=== PATIENT | female | born 1995 | race African-American/Black ===

== ENCOUNTER 2024-06-09 09:01 | Outpatient (CLI) | payer OTHER, SELFPAY ==
--- NOTE | ~2024-06-09 | MR_ITS ---
EXAMINATION: MR knee RT wo con DATE: 06/09/2024 09:46 INDICATION: Right knee patellofemoral disorder. Right knee pain. TECHNIQUE: Magnetic resonance imaging (MRI) of the right knee was performed without intravenous contr ast. Sequences included axial PD-weighted FS FSE, coronal PD-weighted FSE and PD-weighted FS FSE, sag ittal PD-weighted FSE, and sagittal T2-weighted FS FSE. COMPARISON: None. FINDINGS: Medial compartment: Medial meniscus is normal. There is cartilage surface irregularity of femoral condyle and tibial cond yle. Osteophytes are noted. Lateral compartment: Lateral meniscus is normal. Lateral compartment cartilage is normal. Patellofemoral compartment: Patellar cartilage is normal. Trochlear cartilage is normal. Ligaments and tendons: The anterior and posterior cruciate ligaments are normal. Medial collateral ligament is normal. There are changes of prior sprain of fibular collateral ligament characterized by thickening and increased signal intensity proximally. There is mild patellar tendinopathy. Fluid: There is a small knee joint effusion. There is edema in the superolateral aspect of Hoffa's fat pad. There is mild prepatellar and superficial infrapatellar bursitis. IMPRESSION: 1. Mild medial compartment chondrosis. 2. Small knee joint effusion. Reviewed, dictated and finalized at location A. Y OPERATOR
== END 2024-06-09 09:02 | disposition home or self-care (01) ==
PROVIDERS: PCP Emergency Medicine; Visit Provider Emergency Medicine
DX: M22.2X1 Patellofemoral disorders, right knee (principal); M25.461 Effusion, right knee
CPT/HCPCS: 73721